=== PATIENT | female | born 1980 | race Caucasian/White ===

== ENCOUNTER 2021-04-12 08:00 | Day surgery (SDC) | payer BC, SELFPAY ==
[~2021-04-12] VITALS: Ht 160 cm; Wt 146.1 kg
[2021-04-12 08:34] LABS: HCG,QUAL RESULT NEGATIVE (NEGATIVE)
[2021-04-12] MEDS ORDERED: MIDAZOLAM HCL 5 MG/5 ML VIAL ONE (09:24)
[2021-04-12] MEDS ORDERED: BENZOCAINE 20% 0.5mL UD SPRAY MM ONE (09:24)
[2021-04-12] MEDS ORDERED: MEPERIDINE 100 MG INJ. 100 MG/ML VIAL ONE (09:24)
[2021-04-12 13:30] VITALS: BP_SYST 143
== END 2021-04-12 13:10 | disposition home or self-care (01) ==
LOC: SDS 08:00 → SMU 08:02 → SDS 13:10
PROVIDERS: ATTEND Internal Medicine
DX: R10.12 Left upper quadrant pain (principal); K29.70 Gastritis, unspecified, without bleeding; K70.0 Alcoholic fatty liver; E66.01 Morbid (severe) obesity due to excess calories; R14.0 Abdominal distension (gaseous); F10.10 Alcohol abuse, uncomplicated; Z68.43 Body mass index [BMI] 50.0-59.9, adult; Z20.822 Contact with and (suspected) exposure to COVID-19; Z79.899 Other long term (current) drug therapy
CPT/HCPCS: 43239; 84703; 88305; 88312; 88313; 99152; G0378; J2175; J2250; U0003